=== PATIENT | male | born 1990 | race American Indian/Alaskan Native ===

== ENCOUNTER 2016-10-01 21:15 | Emergency (ER) | payer SELFPAY ==
[2016-10-01 21:23] VITALS: BP 137/80
[2016-10-01] MEDS ORDERED: TYLENOL ONE (22:23)
[2016-10-01] MEDS: TYLENOL PO ONE (22:25)
--- NOTE | 2016-10-03 01:28 | ED Elopement Review ---
ED Pt Elopement review - Call Back decision Pt Call Back Decision: No action required
== END 2016-10-02 05:15 | disposition left against medical advice (07) ==
LOC: ED 21:15
DX: S69.91XA Unspecified injury of right wrist, hand and finger(s), initial encounter (principal); Z53.21 Procedure and treatment not carried out due to patient leaving prior to being seen by health care provider; Y04.0XXA Assault by unarmed brawl or fight, initial encounter; Y93.89 Activity, other specified; Y99.8 Other external cause status; Y92.89 Other specified places as the place of occurrence of the external cause

== ENCOUNTER 2018-01-10 11:33 | Emergency (ER) | payer SELFPAY ==
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
--- NOTE | 2018-01-10 12:27 | XRay Report ---
RIGHT SHOULDER, 3 VIEWS: HISTORY: Injury, swelling. Normal bone mineralization. No acute osseous injury or joint pathology is detected. The soft tissues are unremarkable. IMPRESSION: Right shoulder within normal limits.
[2018-01-10 14:18] VITALS: BP 107/68
== END 2018-01-10 13:47 | disposition home or self-care (01) ==
LOC: ED 11:33
DX: S49.91XA Unspecified injury of right shoulder and upper arm, initial encounter (principal); F17.200 Nicotine dependence, unspecified, uncomplicated; F12.90 Cannabis use, unspecified, uncomplicated; X58.XXXA Exposure to other specified factors, initial encounter; Y93.89 Activity, other specified; Y99.8 Other external cause status; Y92.098 Other place in other non-institutional residence as the place of occurrence of the external cause